=== PATIENT | female | born 1955 | race Caucasian/White ===

== ENCOUNTER 2019-05-13 19:15 | Emergency (ER) | payer BC ==
[2019-05-13 19:30] VITALS: BP 153/90
[2019-05-13 20:18] LABS: ABS Eosinophils 0.1 10^3/ul (0-0.6); ABS Lymphocytes 2.1 10^3/ul (1.0-4.8); ABS Monocytes 0.6 10^3/ul (0-0.8); Eosinophil % 1.2 %; Hematocrit 41 % (35-47); Hemoglobin 13.9 g/dL (12.0-16.0); Lymphocyte % 36.3 %; Mean Corpuscular HGB Conc 34 g/dL (31-36); Mean Corpuscular Hemoglobin 29 pg (27-31); Mean Corpuscular Volume 86 fL (80-97); Mean Platelet Volume 7.3 fL (7.4-10.4); Nucleated Red Blood Cells % 0.1; Platelet Count 224 10^3/uL (150-450); Red Blood Count 4.73 10^6 /uL (3.70-4.87); Red Cell Distribution Width 13 % (10-15); White Blood Count 5.8 10^3/uL (3.5-10.8)
[2019-05-13 20:34] LABS: ALT 16 U/L (7-52); AST 17 U/L (13-39); Albumin 4.6 g/dL (3.2-5.2); Albumin/Globulin Ratio 1.8 (1-3); Alkaline Phosphatase 57 U/L (34-104); Anion Gap 7 mmol/L (2-11); BUN/Creatinine Ratio 19.3 (8-20); Blood Urea Nitrogen 16 mg/dL (6-24); C Reactive Protein < 1.00 mg/L (<8.01); CO2 Carbon Dioxide 27 mmol/L (22-32); Calcium 9.4 mg/dL (8.6-10.3); Chloride 107 mmol/L (101-111); EGFR African American 84.3 (>60); EGFR Non-African American 69.7 (>60); Globulin 2.6 g/dL (2-4); Glucose 95 mg/dL (70-100); Potassium 3.8 mmol/L (3.5-5.0); Sodium 141 mmol/L (135-145); Total Protein 7.2 g/dL (6.4-8.9)
--- OUTSIDE RECORDS SUMMARY | 2019-05-14 01:27 | XMS REPORT | Continuity of Care Document ---
:1955 External Reference #:[id number] Author Name [email or web address] Care Team Providers Name Role Phone Sherrell Rae MD Primary Care Physician Unavailable Payers Date Identification Numbers Payment Provider Subscriber Policy Number: [id number] [employer] Stefano Bonilla PayID: [id number] [address] [address] [place] [address] Problems Active Problems Provider Date Parkinson's disease Rashel Torres M.D. Onset: 05/10/2015 Family History Date Family Member(s) Observation Comments Father Diabetes Father Stroke Mother Cancer Social History Type Date Description Comments Sex Unknown ETOH Use Occasionally consumes alcohol Tobacco Use Start: Unknown Patient has never smoked Smoking Status Reviewed: 05/05/19 Patient has never smoked Allergies, Adverse Reactions, Alerts Description No Known Drug Allergies Medications Active Medications SIG Qnty Indications Ordering Date Provider Trihexyphenidyl HCL 1 tab by mouth 225tabs Rashel Holcomb 07/15/2018 5mg every morning, Minda Torres Tablets 1/2 tab by mouth qnoon and 1 tab by mouth every night Ropinirole HCL 3 tabs by mouth 630tabs Rashel Holcomb 10/04/2015 1mg in in the morning Minda Torres Tablets 2 at noon 2 at at bedtime Flonase Allergy Relief 2 intranasal 2units Rashel Holcomb 05/10/2015 twice a day prn Minda Torres 50mcg/Act Suspension Loratadine Allergy 1 by mouth every 30tabs Rashel Holcomb 05/10/2015 Relief day prn Minda Torres 10mg Tablets Dispers Sudafed 1 tab by mouth Rashel Holcomb 05/10/2015 30mg Tablets every 4 hours prn Minda Torres Ibuprofen two caps po as Rashel SNicolette 05/10/2015 200mg Capsules needed Minda Torres History Medications Trihexyphenidyl HCL 2 by mouth in in 720tabs G20 Rashel Holcomb 12/26/2015 - 2mg the morning, 1 Minda Torres 07/14/2018 Tablets at noon and 2 at night Ropinirole HCL 3 po tid 270tabs Rashel Holcomb 09/12/2015 - 0.5mg Minda Torres 10/04/2015 Tablets Requip 3 po tid x 1 360tabs Rashel Holcomb 08/16/2015 - 0.25mg Tablets week then 4 po Minda Torres 09/12/2015 tid Amantadine HCL 1 by mouth twice 60caps Katerine Amador MD 07/24/2015 - 100mg a day 07/01/2016 Capsules Azilect 1 by mouth every 90tabs Rashel Holcomb 07/12/2015 - 1mg Tablets day Minda Torres 07/24/2015 Zinc one every day Rashel Holcomb 05/10/2015 - 50mg Tablets Minda Torres 07/27/2017 Vital Signs Date Vital Result Comment 05/05/2019 1:50pm Height 66 inches 5'6" Weight 142.00 lb Heart Rate 58 /min BP Systolic 136 mmHg BP Diastolic 78 mmHg BMI (Body Mass Index) 22.9 kg/m2 11/03/2018 1:29pm Height 66 inches 5'6" Weight 135.00 lb Heart Rate 68 /min BP Systolic 128 mmHg BP Diastolic 82 mmHg BMI (Body Mass Index) 21.8 kg/m2 04/28/2018 2:47pm Height 66 inches 5'6" Weight 136.00 lb Heart Rate 70 /min BP Systolic 102 mmHg BP Diastolic 72 mmHg BMI (Body Mass Index) 21.9 kg/m2 08/27/2017 11:46am Height 66 inches 5'6" Weight 141.12 lb Heart Rate 76 /min BP Systolic Sitting 118 mmHg BP Diastolic Sitting 76 mmHg BMI (Body Mass Index) 22.8 kg/m2 12/31/2016 11:51am Height 66 inches 5'6" Weight 133.00 lb Heart Rate 72 /min BP Systolic Sitting 122 mmHg BP Diastolic Sitting 76 mmHg Respiratory Rate 14 /min BMI (Body Mass Index) 21.5 kg/m2 07/02/2016 11:54am Height 66 inches 5'6" Weight 130.00 lb Heart Rate 72 /min BP Systolic Sitting 120 mmHg BP Diastolic Sitting 76 mmHg Respiratory Rate 16 /min BMI (Body Mass Index) 21.0 kg/m2 12/26/2015 10:01am Height 66 inches 5'6" Weight 131.00 lb Heart Rate 88 /min BP Systolic Sitting 118 mmHg BP Diastolic Sitting 74 mmHg Respiratory Rate 16 /min BMI (Body Mass Index) 21.1 kg/m2 07/12/2015 10:47am Height 66 inches 5'6" Weight 127.00 lb Heart Rate 60 /min BP Systolic Sitting 112 mmHg BP Diastolic Sitting 68 mmHg Respiratory Rate 16 /min BMI (Body Mass Index) 20.5 kg/m2 06/12/2015 10:56am Height 66 inches 5'6" Weight 127.00 lb Heart Rate 64 /min BP Systolic Sitting 120 mmHg BP Diastolic Sitting 78 mmHg Respiratory Rate 16 /min BMI (Body Mass Index) 20.5 kg/m2 05/10/2015 12:53pm Height 66 inches 5'6" Weight 127.00 lb Heart Rate 76 /min BP Systolic Sitting 132 mmHg BP Diastolic Sitting 82 mmHg Respiratory Rate 14 /min BMI (Body Mass Index) 20.5 kg/m2 Results Test Date Facility Test Result H/L Range Note Basic Metabolic 02/20/2015 [facility] Sodium 141 mmol/L N 133- 145 Panel [address] [place] [address] [phone] Potassium 3.5 mmol/L N 3.5-5.0 Chloride 106 mmol/L N 101-111 Co2 Carbon Dioxide 27 mmol/L N 22-32 Anion Gap 8 mmol/L N 2-11 Glucose 71 mg/dL N 70-100 Blood Urea Nitrogen 12 mg/dL N 6-24 Creatinine 0.69 mg/dL N 0.51-0.95 BUN/Creatinine Ratio 17.4 N 8-20 Calcium 8.9 mg/dL N 8.6-10.3 Egfr Non- 87.7 N >60 Egfr 112.8 N >60 1 Laboratory test 02/20/2015 [facility] Ceruloplasmin 22.1 mg/dL N [address] [place] [address] [phone] Liver Function 02/20/2015 [facility] Total Protein 6.2 g/dL Low 6.4-8. Panel [address] [facility] [address] [place] [address] [phone] Albumin 4.4 g/dL N 3.2-5.2 Globulin 1.8 g/dL Low 2-4 Albumin/Globulin Ratio 2.4 N 1-3 Total Bilirubin 0.50 mg/dL N 0.2-1.0 Direct Bilirubin 0.10 mg/dL N 0.03-0.18 Indirect Bilirubin 0.4 mg/dL N 0.3-1.0 Alkaline Phosphatase 59 U/L N 34-104 Alt 13 U/L N 7-52 Ast 17 U/L N 13-39 Laboratory test 02/20/2015 [facility] Magnesium 2.2 mg/dL N 1.9-2.7 finding [address] [place] [address] [phone] TSH (Thyroid Stimulating Horm) 1.54 ?IU/mL N 0.34-5.60 1 Because ethnic data is not always readily available, this report includes an eGFR for both -Americans and non- Americans. The National Kidney Disease Education Program (NKDEP) does not endorse the use of the MDRD equation for patients that are not between the ages of 18 and 70, are , have extremes of body size, muscle mass, or nutritional status, or are non- or non-. According to the National Kidney Foundation, irrespective of diagnosis, the stage of the disease is based on the level of kidney function: Stage Description GFR(mL/min/1.73 m(2)) 1 Kidney damage with normal or decreased GFR 90 2 Kidney damage with mild decrease in GFR 60-89 3 Moderate decrease in GFR 30-59 4 Severe decrease in GFR 15-29 5 Kidney failure <15 (or dialysis) 2 REFERENCE VALUE 16.0 - 45.0 Test Performed by: [address] [address] Paint Technician: João Cosby II, M.D., Ph.D. Encounters Type Date Location Provider Dx Diagnosis Office Visit 11/03/2018 [facility] Rashel S. G20 Parkinson's 1:30p Services Of Gael Torres M.D. disease Office Visit 04/28/2018 [facility] Rashel S. G20 Parkinson's 2:45p Services Of Gael Torres M.D. disease Office Visit 08/27/2017 [facility] Rashel SNicolette G20 Parkinson's 11:30a Minda Torres disease Office Visit 12/31/2016 [facility] Rashel S. G20 Parkinson's 11:45a Services Of Gael Torres M.D. disease Office Visit 07/02/2016 [facility] Rashel S. G20 Parkinson's 11:45a Services Of Gael Torres M.D. disease Office Visit 12/26/2015 [facility] Rashel S. G20 Parkinson's 9:45a Minda Torres disease Office Visit 07/12/2015 [facility] Rashel SNicolette G20 Parkinson's 10:30a Minda Torres disease Office Visit 06/12/2015 [facility] Rashel Holcomb 332.0 Paralysis 11:00a Minda Torres Agitans Office Visit 05/10/2015 [facility] Rashel Holcomb 333.1 Tremor Essential 1:00p Services Of Gael Torres M.D. & Other Forms Plan of Treatment Future Appointment(s):11/09/2019 1:30 pm - Rashel Torres M.D. at [facility]05/05/2019 - Rashel Torres M.D.G20 Parkinson's [id number] PalpitationsReferral:Fritz Santamaria MD, Cardiovsclr Disease
== END 2019-05-13 20:57 | disposition left against medical advice (07) ==
LOC: ED 19:15
DX: Z53.21 Procedure and treatment not carried out due to patient leaving prior to being seen by health care provider (principal)
CPT/HCPCS: 36415; 80053; 84484; 85025; 86140; 93005; 99281